=== PATIENT | female | born 1995 | race African-American/Black ===

== ENCOUNTER 2020-07-01 13:13 | Emergency (ER) | payer SELFPAY ==
[~2020-07-01] VITALS: Ht 162.6 cm; Wt 52.2 kg
[2020-07-01 13:30] VITALS: BP 110/75
--- NOTE | 2020-07-01 13:37 | NUR ---
ED Nurse Note: Pt walked in to ED c/o trouble breathing onset this AM. Pt stated she is having opiate withdrawal. Pt appears to be anxious and restless. received pt anxious, restless. vss. complaints of 05/08 generalized pain. Addendum: 07/01/20 at 1342 by [place] pt stated, "I took my suboxone too early." pt is yelling and asking for the doctor.
--- NOTE | 2020-07-01 13:58 | NUR ---
ED Nurse Note: pt refused chest xray
[2020-07-01 14:26] LABS: APPEARANCE,URINE CLEAR; BILIRUBIN, URINE NEGATIVE (NEGATIVE); COLOR,URINE PALE YELLOW; GLUCOSE, URINE (UA) NEGATIVE (NEGATIVE); KETONES,URINE NEGATIVE (NEGATIVE); LEUKOCYTE ESTERASE ,URINE NEGATIVE (NEGATIVE); NITRITE,URINE NEGATIVE (NEGATIVE); PH,URINE 9 (4.5-8.0); PROTEIN,URINE 1+ (NEGATIVE); UROBILINOGEN,URINE NORMAL MG/DL (0.0-1.0)
[2020-07-01 14:32] LABS: BASOPHILS % (AUTO) 1.2 % (0.0-2.0); EOSINOPHILS % (AUTO) 0.5 % (0.0-3.0); HEMATOCRIT 40.3 % (37.0-47.0); HEMOGLOBIN 13.7 G/DL (12.0-16.0); MEAN CORPUSCULAR VOLUME 85 FL (80-99); MONOCYTES % (AUTO) 5.8 % (1.0-10.0); NEUTROPHILS % (AUTO) 65.4 % (45.0-75.0); PLATELET COUNT 188 K/UL (150-450); RED BLOOD COUNT 4.74 M/UL (4.20-5.40); RED CELL DISTRIBUTION WIDTH 11.5 % (11.6-14.8); WHITE BLOOD COUNT 3.5 K/UL (4.8-10.8)
[2020-07-01 14:36] LABS: ANION GAP 9 mmol/L (5-15); BLOOD UREA NITROGEN 7 mg/dL (7-18); CARBON DIOXIDE 27 MMOL/L (21-32); CHLORIDE 104 MMOL/L (98-107); CREATININE 0.8 MG/DL (0.55-1.30); POTASSIUM 3.6 MMOL/L (3.5-5.1); SODIUM 140 MMOL/L (136-145)
--- NOTE | 2020-07-01 14:40 | Emergency Room Report ---
History of Present Illness General Chief Complaint: Dyspnea/Respdistress Source: Patient Present Illness HPI 24-year-old female with history of opiate abuse here complaining of opiate withdrawal. Patient is crawling on the floor screaming saying that she wants some attention. Patient also repeatedly says that I need to help her and she read online that we will give her strong sedatives to deal with opiate w ithdrawal. Patient reports that she took Suboxone from the street earlier today however feels like there is a lot of pain all over body and feels like her body is tearing apart. Patient reports that she is short of her Suboxone because she has taken in the past. When told that we are not going to give IV sedatives patient stop the crying and asked why not she read it in details online that we will go ahead and give it to her. Patient is walking with a steady gait constantly saying "I need some attention." Denies all other drug use. Allergies: Coded Allergies: No Known Allergies (Unverified , 07/01/20) COVID-19 Screening Contact w/high risk pt: No Experienced COVID-19 symptoms?: No COVID-19 Testing performed OFFICE AGENT: No Patient History Past Medical History: see triage record Past Surgical History: unable to obtain Pertinent Family History: unable to obtain Social History: Reports: drug use - Opiates Reviewed Nursing Documentation: PMH: Agreed; PSxH: Agreed Review of Systems All Other Systems: negative except mentioned in HPI Physical Exam Vital Signs Date Time Temp Pulse Resp B/P (MAP) Pulse Ox O2 Delivery O2 Flow Rate FiO2 07/01/20 13:15 99.0 79 15 110/75 (87) 96 Room Air Sp02 EP Interpretation: reviewed, normal General Appearance: alert, mild distress Head: normocephalic, atraumatic Eyes: bilateral eye normal inspection, bilateral eye PERRL ENT: hearing grossly normal, normal pharynx, no angioedema, normal voice Neck: full range of motion, supple/symm/no masses Respiratory: chest non-tender, lungs clear, normal breath sounds, speaking full sentences Cardiovascular #1: regular rate, rhythm, no edema Cardiovascular #2: 2+ carotid (R), 2+ carotid (L), 2+ radial (R), 2+ radial (L), 2+ dorsalis pedis (R), 2+ dorsalis pedis (L) Gastrointestinal: normal bowel sounds, non tender, soft, non-distended, no guarding, no rebound Rectal: deferred Musculoskeletal: back normal Neurologic: alert, motor strength/tone normal, oriented x3, sensory intact, responsive, speech normal Psychiatric: anxious Skin: no rash Lymphatic: no adenopathy Medical Decision Making PA Attestation All my diagnosis and treatment plans were reviewed ad discussed with my supervising physician Dr. Figueroa Diagnostic Impression: Primary Impression: Opiate withdrawal ER Course 24-year-old female with history of opiate abuse here complaining of opiate withdrawal. Patient is crawling on the floor screaming saying that she wants some attention. Patient also repeatedly says that I need to help her and she read online that we will give her strong sedatives to deal with opiate withdrawal. Patient reports that she took Suboxone from the street earlier today however feels like there is a lot of pain all over body and feels like her body is tearing apart. Patient reports that she is short of her Suboxone tone use she has taken in the past. When told that we are not going to give IV sedatives patient stop the crying and asked why not she read it in details online that we will go ahead and give it to her. Patient is walking with a steady gait constantly saying "I need some attention." Denies all other drug use. Ddx considered but are not limited to: generalized anxiety disorder, panic attack, depression with psychotic feature, bipolar disorder, drug overdose Vital signs: are WNL, pt. is afebrile H&PE are most consistent with: Opiate withdrawal ORDERS: CBC, CMP, UA, tox screen, urine test, chest x-ray ED INTERVENTIONS: NS bolus, Benadryl p.o., Tylenol p.o. PT declined chest x-ray DISCHARGE: At this time pt. is stable for d/c to home. Will provide printed patient care instructions, and any necessary prescriptions. Care plan and follow up instructions have been discussed with the patient prior to discharge. Advised to follow primary doctor and pain management for further evaluation of Suboxone, also follow-up with therapist, if worsening symptoms return to emergency room Last Vital Signs Date Time Temp Pulse Resp B/P (MAP) Pulse Ox O2 Delivery O2 Flow Rate FiO2 07/01/20 13:30 99.0 15 110/75 96 Room Air 07/01/20 13:30 79 Disposition: HOME, SELF-CARE Condition: Stable Scripts Diphenhydramine Hcl* (BENADRYL*) 25 Mg Capsule 25 MG ORAL q12 PRN for Itching, #6 CAP Prov: Ac Kelly 07/01/20 Referrals: NOT CHOSEN IPA/MD,REFERRING (PCP) Patient Instructions: Opioid Withdrawal Additional Instructions: Advised to follow primary doctor and pain management for further evaluation of Suboxone, also follow-up with therapist, if worsening symptoms return to emergency room Ac Kelly Jul 01, 2020 14:40
[2020-07-01 14:41] LABS: ALANINE AMINOTRANSFERASE 17 U/L (12-78); ALBUMIN/GLOBULIN RATIO 1.1 (1.0-2.7); ALKALINE PHOSPHATASE 53 U/L (46-116); ASPARTATE AMINO TRANSFERASE 21 U/L (15-37); BILIRUBIN,TOTAL 0.4 MG/DL (0.2-1.0)
[2020-07-01 15:17] VITALS: BP 128/69
[2020-07-01] MEDS ORDERED: BENADRYL25 MG ORAL (15:19)
--- NOTE | 2020-07-01 15:19 | NUR ---
ED Nurse Note: Pt cleared by health care Provider for discharge. DC instructions/prescription was given and explained to pt and verbalized understanding of teachings. All medical devices such as ID band removed. Pt is AAO x4, ambulatory and left with all personal belongings. vss.
== END 2020-07-01 15:28 | disposition home or self-care (01) ==
LOC: EMR 13:39
DX: F11.13 Opioid abuse with withdrawal (principal)
CPT/HCPCS: 36415; 80053; 80307; 81003; 81025; 85025; 96360; 99284; J7030